=== PATIENT | male | born 1985 | race Caucasian/White ===

== ENCOUNTER 2016-09-10 11:47 | Emergency (ER) | payer SELFPAY ==
[~2016-09-10] VITALS: Ht 175.3 cm; Wt 90.0 kg
[2016-09-10 11:48] VITALS: BP 126/82; PULSE 97; RESP 15; TEMP 98.1; O2SAT 98
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
[2016-09-10] MEDS ORDERED: KETOROLAC TROMETHAMINE 60 MG/2 ML (IM) VIAL IM ONE (12:15)
[2016-09-10] MEDS ORDERED: ORPHENADRINE INJ 60 MG/2 ML AMP IM ONE (12:15)
--- NOTE | 2016-09-10 12:35 | PD ---
HPI Chief Complaint: Injury Time Seen by Provider: 12:28 Travel History International Travel<30 days: No Contact w/Intl Traveler<30days: No Traveled to known affect area: No History of Present Illness HPI 31-year-old male presents the emergency department after accident while working on a motorcycle. Patient states he is carrying the motorcycle engine, which weighs approximately 150 pounds, when he tripped on a tool left on the floor, causing him to fall backwards. Patient states he tried to hold onto the engine to prevent it from falling to the floor, and when he hit backwards he felt a "pull" in his middle thoracic back, and then handed on his buttocks with the engine on top of him. He is not complaining of any anterior chest pain or abdominal pain. This chiefly complaining of pain in the thoracic and lumbar spine. Pain is localized in the mid thoracic spine below the shoulder blades. He states it is worse with movement, cough, and trying to twist. Patient denies numbness or tingling. He denies radicular symptoms in the lower extremities. Pain is an 8 out of 10. He can feel the muscle spasm as well. He is allergic to penicillin and Depakote. PFSH Past Medical History ?: Not Social History Alcohol Use: Yes Tobacco Use: Yes Substance Use: Yes Allergies-Medications (Allergen,Severity, Reaction): Coded Allergies: Depakote (Verified Allergy, Severe, 02/25/14) Penicillin (Verified Allergy, Severe, Rash, 02/25/14) Reported Meds & Prescriptions Reported Meds & Active Scripts Active Orphenadrine CR (Orphenadrine Citrate) 100 Mg Tab 100 Mg PO Q12HR Non-Aspirin Pain Relief ES (Acetaminophen) 500 Mg Tab 500 Mg PO Q6HR PRN Ibuprofen 600 Mg Tab 600 Mg PO Q6H PRN Review of Systems Except as stated in HPI: all other systems reviewed are Neg General / Constitutional: No: Fever Eyes: No: Visual changes HENT: No: Headaches Cardiovascular: No: Chest Pain or Discomfort Respiratory: No: Shortness of Breath Gastrointestinal: No: Abdominal Pain Genitourinary: No: Dysuria Musculoskeletal: Positive: Limited ROM, Pain (see history present illness.) Skin: No Rash Neurologic: No: Weakness Psychiatric: No: Depression Endocrine: No: Polydipsia Hematologic/Lymphatic: No: Easy Bruising Physical Exam Narrative GENERAL: Patient appears in mild to moderate distress. SKIN: Warm and dry. Normal color. Normal turgor. No signs of trauma. No ecchymosis. No abrasions. HEAD: Atraumatic. Normocephalic. EYES: Pupils equal and round. No scleral icterus. No injection or drainage. ENT: No nasal bleeding or discharge. Mucous membranes pink and moist. Pharynx is clear. NECK: Trachea midline. No bony tenderness or step-off. Neck is supple. CARDIOVASCULAR: Regular rate and rhythm. RESPIRATORY: No accessory muscle use. Clear to auscultation. Breath sounds equal bilaterally. No thoracic tenderness in the anterior chest wall. Patient is tenderness at the T9/10 level of the thoracic spine, As well as soft tissue tenderness and muscle spasm. GASTROINTESTINAL: Abdomen soft, non-tender, nondistended. Hepatic and splenic margins not palpable. MUSCULOSKELETAL: Extremities without clubbing, cyanosis, or edema. No obvious deformities. See respiratory. Patient has soft tissue tenderness along the thoracic and lumbar spine bilaterally. Patient has bony tenderness of the T9/ 10 level, without deformity or crepitus. Thoracic range of motion is limited secondary to pain. Patient has no lower extremity symptoms suggestive of sciatica. NEUROLOGICAL: Awake and alert. No obvious cranial nerve deficits. Motor grossly within normal limits. Five out of 5 muscle strength in the arms and legs. Normal speech. PSYCHIATRIC: Appropriate mood and affect; insight and judgment normal. Data Data Last Documented VS Vital Signs Date Time Temp Pulse Resp B/P Pulse Ox O2 Delivery O2 Flow Rate FiO2 09/10/16 11:48 98.1 97 15 126/82 98 Orders Ketorolac Inj (Toradol Inj) (09/10/16 12:15) Orphenadrine Inj (Norflex Inj) (09/10/16 12:15) Chest, Single Ap (09/10/16 12:09) Spine, Thoracic-Ap/Lat/Sw(3vw) (09/10/16 12:09) [facility] Medical Decision Making Medical Screen Exam Complete: Yes Emergency Medical Condition: Yes Differential Diagnosis Fall. Crush injury. Thoracic strain. Lumbar strain. Possible vertebral fracture. Narrative Course Patient is medically stable at time of exam. Patient is given 60 mg Toradol as well as 60 mg Norflex IM. X-rays of the chest and thoracic spine are ordered. Chest x-ray and thoracic spine x-ray are normal per radiologist. Patient will be discharged home on ibuprofen 600 mg 4 times a day #40. Patient also given Norflex 100 mg twice a day #20. Patient also given acetaminophen thousand milligrams 2 tabs every 6 hours #60. Patient use heat followed by ice and gentle stretching as discussed. Patient follow with his primary care physician or return to emergency Department with worsening symptoms as needed. Diagnosis Primary Impression: Thoracic myofascial strain Qualified Code: S29.019A - Thoracic myofascial strain, initial encounter Additional Impression: Strain of lumbar paraspinal muscle Qualified Code: S39.012A - Strain of lumbar paraspinal muscle, initial encounter Referrals: Primary Care Physician Patient Instructions: General Instructions, Low Back Strain (ED), Lower Back Exercises (GEN), Thoracic Back Strain (ED), Upper Back Exercises (GEN) Departure Forms: Tests/Procedures, Work Release Enter return to work date: Sep 11, 2016 Additional Instructions: Patient is given 60 mg Toradol as well as 60 mg Norflex IM. X-rays of the chest and thoracic spine are ordered. Chest x-ray and thoracic spine x-ray are normal per radiologist. Patient will be discharged home on ibuprofen 600 mg 4 times a day #40. Patient also given Norflex 100 mg twice a day #20. Patient also given acetaminophen thousand milligrams 2 tabs every 6 hours #60. Patient use heat followed by ice and gentle stretching as discussed. Patient follow with his primary care physician or return to emergency Department with worsening symptoms as needed. Med/Other Pt SpecificInfo: Prescription(s) given Scripts Orphenadrine ER 12 HR (Orphenadrine CR)100 Mg [id number] Mg PO Q12HR #20 TAB Prov:Peterson Nix MD 09/10/16 Acetaminophen (Non-Aspirin Pain Relief ES)500 Mg [id number] Mg PO Q6HR PRN (PAIN) # 60 TAB Ref 0 Prov:Peterson Nix MD 09/10/16 Ibuprofen 600 Mg [id number] Mg PO Q6H PRN (Pain/Inflammation) #40 TAB Prov:Peterson Nix MD 09/10/16 Disposition: DISCHARGE HOME Condition: Stable Hussain Alamo Sep 10, 2016 12:35
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
[2016-09-10] MEDS ORDERED: IBUP-232 PO (13:03)
[2016-09-10] MEDS ORDERED: NON-500T13 PO (13:03)
[2016-09-10] MEDS ORDERED: ORPH100T99 PO (13:03)
== END 2016-09-10 13:28 | disposition home or self-care (01) ==
LOC: NEPK 11:47
DX: S29.012A Strain of muscle and tendon of back wall of thorax, initial encounter (principal); S39.012A Strain of muscle, fascia and tendon of lower back, initial encounter; W18.09XA Striking against other object with subsequent fall, initial encounter; Y93.89 Activity, other specified
CPT/HCPCS: 71010; 72072; 96372; 99284; J1885; J2360

== ENCOUNTER 2017-02-21 02:27 | Emergency (ER) | payer SELFPAY ==
[~2017-02-21] VITALS: Ht 177.8 cm; Wt 93.0 kg
[~2017-02-21 02:27] MED LIST: IBUP-232 PO; NON-500T13 PO; ORPH100T2 PO
[2017-02-21] MEDS ORDERED: SODIUM CHLOR 0.9% 1000 ML INJ 1,000 ML IV SCH (02:28)
[2017-02-21 02:30] VITALS: BP 144/87; PULSE 83; RESP 18; TEMP 97.7; O2SAT 100
[2017-02-21] MEDS ORDERED: LIDOCAINE VISCOUS 2% SOLN 15 ML UDC PO ONE ×2 (02:30→03:45)
[2017-02-21] MEDS ORDERED: PANTOPRAZOLE SODIUM 40 MG VIAL IVP ONE (02:30)
[2017-02-21] MEDS ORDERED: FAMOTIDINE 20 MG/2 ML VIAL IV PUSH ONE (02:30)
[2017-02-21] MEDS ORDERED: SODIUM CHLORIDE 0.9% FLUSH 10 ML FLUSH IV FLUSH PRN (02:30)
[2017-02-21] MEDS ORDERED: ALUMINUM/MAGNESIUM/SIMETH 30 ML CUP PO ONE ×2 (02:30→03:45)
[2017-02-21 02:34] VITALS: O2SAT 100
[2017-02-21] MEDS ORDERED: ONDANSETRON HCL 4 MG/2 ML VIAL IV ONE (02:45)
[2017-02-21] MEDS ORDERED: HYDROmorphone HCL PF 1 MG/ML VIAL IVP ONE ×3 (02:45→04:15)
--- NOTE | 2017-02-21 03:00 | PD ---
HPI Chief Complaint: Abdominal Pain Time Seen by Provider: 02:28 Travel History International Travel<30 days: No Contact w/Intl Traveler<30days: No Traveled to known affect area: No History of Present Illness HPI The patient is a 31-year-old male that complains of midline epigastric pain for 2 hours. He also has nausea, vomiting and diarrhea. The diarrhea has been going on now for 3 days. He ate chili tonight but he states that he normally eats spicy foods and has no problem with spicy foods. He denies any blood in the vomitus. He denies any fever. He has never had any abdominal surgeries and still has his gallbladder and appendix. He complains of a pain intensity of 8/10 constant pain and burning and sharp. He called the ambulance because he could not get off the floor because of the pain. Apparently, the vomiting was fairly violent at home. FOR[facility]LY [facility], [facility] Past Medical History Medical History: Denies Significant Hx Diminished Hearing: No Tetanus Vaccination: < 5 Years Influenza Vaccination: No Social History Alcohol Use: Yes Tobacco Use: Yes Substance Use: Yes Allergies-Medications (Allergen,Severity, Reaction): Coded Allergies: divalproex sodium (Unverified Allergy, Severe, 02/21/17) penicillin G (Unverified Allergy, Severe, Rash, 02/21/17) Reported Meds & Prescriptions Reported Meds & Active Scripts Active No Active Prescriptions or Reported Medications Review of Systems Except as stated in HPI: all other systems reviewed are Neg Physical Exam Narrative GENERAL: The patient is alert, oriented 3, anxious in moderate to severe distress with his midline epigastric discomfort. His vital signs are normal. SKIN: Focused skin assessment warm/dry. HEAD: Atraumatic. Normocephalic. EYES: Pupils equal and round. No scleral icterus. No injection or drainage. ENT: No nasal bleeding or discharge. Mucous membranes pink and moist. NECK: Trachea midline. No JVD. CARDIOVASCULAR: Regular rate and rhythm. No murmur appreciated. RESPIRATORY: No accessory muscle use. Clear to auscultation. Breath sounds equal bilaterally. GASTROINTESTINAL: Abdomen soft, with tenderness to direct palpation in the midline epigastrium, nondistended. Hepatic and splenic margins not palpable. No guarding or rebound is present. Lopez's sign is negative. MUSCULOSKELETAL: No obvious deformities. No clubbing. No cyanosis. No edema. NEUROLOGICAL: Awake and alert. No obvious cranial nerve deficits. Motor grossly within normal limits. Normal speech. PSYCHIATRIC: The patient is extremely anxious; insight and judgment normal. RECTAL EXAM: No masses or tenderness, stool is brown and guaiac-negative. No hemorrhoids are noted. Data Data Last Documented VS Vital Signs Date Time Temp Pulse Resp B/P (MAP) Pulse Ox O2 Delivery O2 Flow Rate FiO2 02/21/17 04:31 68 18 150/93 (112) 98 Room Air 02/21/17 02:30 97.7 Orders Orders Complete Blood Count With Diff (02/21/17 02:28) Comprehensive Metabolic Panel (02/21/17 02:28) Lipase (02/21/17 02:28) Urinalysis - C+S If Indicated (02/21/17 02:28) Iv Access Insert/Monitor (02/21/17 02:28) Ecg Monitoring (02/21/17 02:28) Oximetry (02/21/17 02:28) Pantoprazole Inj (Protonix Inj) (02/21/17 02:30) Sodium Chlor 0.9% 1000 Ml Inj (Ns 1000 M (02/21/17 02:28) Sodium Chloride 0.9% Flush (Ns Flush) (02/21/17 02:30) Famotidine Inj (Pepcid Inj) (02/21/17 02:30) Al-Mag Hy-Si 40-40-4 Mg/Ml Liq (Mag-Al P (02/21/17 02:30) Lidocaine 2% Viscous (Xylocaine 2% Visco (02/21/17 02:30) Hydromorphone Pf Inj (Dilaudid Pf Inj) (02/21/17 02:45) Ondansetron Inj (Zofran Inj) (02/21/17 02:45) Al-Mag Hy-Si 40-40-4 Mg/Ml Liq (Mag-Al P (02/21/17 03:45) Lidocaine 2% Viscous (Xylocaine 2% Visco (02/21/17 03:45) Hydromorphone Pf Inj (Dilaudid Pf Inj) (02/21/17 04:15) Labs Laboratory Tests Test 02/21/17 02:45 02/21/17 03:40 White Blood Count 4.9 TH/MM3 Red Blood Count 4.80 MIL/MM3 Hemoglobin 13.2 GM/DL Hematocrit 38.2 % Mean Corpuscular Volume 79.6 FL Mean Corpuscular Hemoglobin 27.5 PG Mean Corpuscular Hemoglobin Concent 34.6 % Red Cell Distribution Width 13.0 % Platelet Count 207 TH/MM3 Mean Platelet Volume 9.1 FL Neutrophils (%) (Auto) 50.2 % Lymphocytes (%) (Auto) 36.6 % Monocytes (%) (Auto) 8.9 % Eosinophils (%) (Auto) 3.7 % Basophils (%) (Auto) 0.6 % Neutrophils # (Auto) 2.5 TH/MM3 Lymphocytes # (Auto) 1.8 TH/MM3 Monocytes # (Auto) 0.4 TH/MM3 Eosinophils # (Auto) 0.2 TH/MM3 Basophils # (Auto) 0.0 TH/MM3 CBC Comment DIFF FINAL Differential Comment Blood Urea Nitrogen 13 MG/DL Creatinine 0.70 MG/DL Random Glucose 104 MG/DL Total Protein 6.5 GM/DL Albumin 3.5 GM/DL Calcium Level 7.8 MG/DL Alkaline Phosphatase 30 U/L Aspartate Amino Transf (AST/SGOT) 23 U/L Alanine Aminotransferase (ALT/SGPT) 56 U/L Total Bilirubin 0.8 MG/DL Sodium Level 140 MEQ/L Potassium Level 3.6 MEQ/L Chloride Level 108 MEQ/L Carbon Dioxide Level 21.1 MEQ/L Anion Gap 11 MEQ/L Estimat Glomerular Filtration Rate 132 ML/MIN Lipase 304 U/L Urine Color YELLOW Urine Turbidity CLEAR Urine pH 6.0 Urine Specific Maurice 1.023 Urine Protein TRACE mg/dL Urine Glucose (UA) NEG mg/dL Urine Ketones TRACE mg/dL Urine Occult Blood NEG Urine Nitrite NEG Urine Bilirubin NEG Urine Leukocyte Esterase NEG Urine WBC 0-2 /hpf Urine Squamous Epithelial Cells 0-5 /hpf Urine Mucus RARE /lpf Microscopic Urinalysis Comment CULT NOT INDICATED MDM Medical Decision Making Medical Screen Exam Complete: Yes Emergency Medical Condition: Yes Medical Record Reviewed: Yes Interpretation(s) The CBC is normal except for hemoglobin of 13.2 and hematocrit of 38.2. The urinalysis shows trace protein, trace ketones but is otherwise normal and culture is not indicated. The complete metabolic profile shows a calcium of 7.8 but is otherwise normal. Differential Diagnosis Reflux esophagitis, ulcer pain, pancreatitis, electrolyte disorder, colitis, cholecystitis, pyelonephritis, cholelithiasis with colic Narrative Course It is now 0315 and the patient's pain is a 4/10. The patient later developed more pain and had to get another milligram of Dilaudid. He still has tenderness in the midline epigastrium. The blood work is essentially normal. The patient likely has a gastroenteritis. He has had diarrhea for 3 days the vomiting just started tonight. Impression: Gastroenteritis with reflux esophagitis Diagnosis Primary Impression: Gastroenteritis Additional Impression: Reflux esophagitis Additional Instructions: The Prilosec is taken one tablet daily and the Zantac is taken one tablet twice daily. Take these medications regularly until you have no more discomfort. The nausea medicine is 1 capsule/tablet every 6 hours. It is a good idea to take it regularly every 6 hours until you are confident you will not get nauseated again. You do not want to start vomiting as this will irritate her stomach again. Med/Other Pt SpecificInfo: Prescription(s) given Scripts Omeprazole (Omeprazole) 20 Mg Tab 20 MG PO DAILY, #30 TAB 0 Refills Prov: Gilberto Lewis MD 02/21/17 Ranitidine (Zantac) 150 Mg Tab 150 MG PO BID for Reduce Stomach Acid, #60 TAB 0 Refills Prov: Gilberto Lewis MD 02/21/17 Prochlorperazine Maleate (Prochlorperazine Maleate) 10 Mg Tab 10 MG PO Q6H Y for NAUSEA OR VOMITING, #30 TAB 0 Refills Prov: Gilberto Lewis MD 02/21/17 Disposition: 01 DISCHARGE HOME Condition: Stable Gilberto Lewis MD Feb 21, 2017 03:00
[2017-02-21 03:13] LABS: CHLORIDE 108 MEQ/L (98-107); POTASSIUM 3.6 MEQ/L (3.5-5.1); SODIUM (NA) 140 MEQ/L (136-145)
[2017-02-21 03:17] LABS: ANION GAP 11 MEQ/L (5-15); BICARBONATE 21.1 MEQ/L (21.0-32.0); BLOOD UREA NITROGEN 13 MG/DL (7-18)
[2017-02-21 03:20] LABS: ALT (GPT) 56 U/L (12-78); AST (GOT) 23 U/L (15-37); GLOMERULAR FILTRATION RATE 132 ML/MIN (>89)
[2017-02-21 03:21] LABS: TOTAL BILIRUBIN ADULT 0.8 MG/DL (0.2-1.0)
[2017-02-21 03:23] LABS: ALKALINE PHOSPHATASE 30 U/L (45-117)
[2017-02-21 03:24] LABS: AUTOMATED NEUTROPHIL # 2.5 TH/MM3 (1.8-7.7); BASOPHIL % 0.6 % (0.0-2.0); EOSINOPHIL # 0.2 TH/MM3 (0-0.4); EOSINOPHIL % 3.7 % (0.0-4.0); HEMATOCRIT 38.2 % (39.0-51.0); LYMPH % 36.6 % (9.0-44.0); LYMPHOCYTE # 1.8 TH/MM3 (1.0-4.8); MEAN CELL VOLUME 79.6 FL (80.0-100.0); MEAN CORPUSCULAR HEMOGLOBIN 27.5 PG (27.0-34.0); MEAN CORPUSCULAR HGB CONC 34.6 % (32.0-36.0); MONO % 8.9 % (0.0-8.0); NEUT % 50.2 % (16.0-70.0); PLATELET COUNT 207 TH/MM3 (150-450); WHITE BLOOD COUNT 4.9 TH/MM3 (4.0-11.0)
[2017-02-21 03:47] LABS: HEMO FLAGS DIFF FINAL
[2017-02-21 03:54] LABS: BLOOD, URINE NEG (NEG); GLUCOSE,URINE NEG (NEG); KETONE, URINE TRACE mg/dL (NEG); NITRITE,URINE NEG (NEG)
[2017-02-21 03:59] LABS: URINE COLOR YELLOW (YELLW/STRAW)
[2017-02-21 04:02] LABS: SQUAMOUS EPITHELIAL CELL URINE 0-5 /hpf (0-5); WBC, URINE 0-2 /hpf (0-5)
[2017-02-21 04:03] LABS: COMMENT (UR) CULT NOT INDICATED; CULTURE IF INDICATED CULT NOT INDICATED; MUCUS URINE RARE /lpf (OCC)
[2017-02-21 04:31] VITALS: BP 150/93; PULSE 68; RESP 18; O2SAT 98
[2017-02-21] MEDS ORDERED: ZANT150T2 PO (04:44)
[2017-02-21] MEDS ORDERED: PROC10TA PO (04:44)
[2017-02-21] MEDS ORDERED: OMEP20TA93 PO (04:45)
[2017-02-21] MEDS ORDERED: NORC5TAB PO (05:25)
== END 2017-02-21 05:31 | disposition home or self-care (01) ==
LOC: PHED 02:27
DX: K52.9 Noninfective gastroenteritis and colitis, unspecified (principal); K21.0 Gastro-esophageal reflux disease with esophagitis
CPT/HCPCS: 80053; 81001; 83690; 85025; 96361; 96374; 96375; 96376; 99284; C9113; J1170; J2405; J7030

== ENCOUNTER 2017-09-09 13:34 | Emergency (ER) | payer SELFPAY ==
[~2017-09-09] VITALS: Ht 175.3 cm; Wt 100.0 kg
[~2017-09-09 13:34] MED LIST changes: -IBUP-232 PO; -NON-500T13 PO; +NORC5TAB PO; +OMEP20TA93 PO; -ORPH100T2 PO; +PROC10TA PO; +ZANT150T2 PO
[2017-09-09 13:38] VITALS: BP 140/91; PULSE 99; RESP 16; TEMP 98.2; O2SAT 97
[2017-09-09] MEDS ORDERED: BUPIVACAINE HCL PF 0.5% 30 ML VIAL INFIL ONE (14:00)
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
[2017-09-09] MEDS ORDERED: CEPH-460 PO (15:03)
[2017-09-09] MEDS ORDERED: BACT800T5 PO (15:03)
== END 2017-09-09 15:30 | disposition home or self-care (01) ==
LOC: PHEFT 13:34
DX: S61.219A Laceration without foreign body of unspecified finger without damage to nail, initial encounter (principal); S31.119A Laceration without foreign body of abdominal wall, unspecified quadrant without penetration into peritoneal cavity, initial encounter; W25.XXXA Contact with sharp glass, initial encounter; F17.200 Nicotine dependence, unspecified, uncomplicated
CPT/HCPCS: 12001